=== PATIENT | female | born 1945 | race Two or more races ===

== ENCOUNTER 2024-02-21 13:52 | Emergency (ER) | payer OTHER ==
[~2024-02-21] VITALS: Ht 160 cm; Wt 82.6 kg
[2024-02-21] MEDS ORDERED: ONDANSETRON HCL 2 MG/ML VIAL ONE (15:26)
[2024-02-21] MEDS ORDERED: FAMOTIDINE/PF 20 MG/2 ML VIAL ONE (15:26)
[2024-02-21] MEDS ORDERED: 0.9 % SODIUM CHLORIDE 500 ML IV ONE (15:30)
[2024-02-21] MEDS ORDERED: ONDANSETRON HCL 2 MG/ML VIAL IV ONE (15:30)
[2024-02-21] MEDS ORDERED: FAMOTIDINE/PF 20 MG/2 ML VIAL IV ONE (15:30)
[2024-02-21 15:49] LABS: HEMATOCRIT 35.3 % (36.0-45.00); HEMOGLOBIN 11.6 g/dL (12.0-15.00); MEAN CELL VOLUME 85.1 fL (80.00-100.00); MEAN CORPUSCULAR HEMOGLOBIN 27.9 pg (27.00-32.0); MEAN CORPUSCULAR HGB CONC 32.7 g/dl (32.0-36.0); PLATELET COUNT 202 K/uL (150-450); RED BLOOD COUNT 4.14 M/uL (4.00-6.00); RED CELL DISTRIBUTION WIDTH 13.6 % (11.5-14.5)
[2024-02-21 16:13] LABS: ALBUMIN 3.6 gm/dL (3.4-5.0); BILIRUBIN TOTAL 0.55 mg/dL (0.3-1.2); CREATININE SERUM 0.72 mg/dL (0.55-1.02); GFR 77.94; GLOBULINA 3.7 G/DL (2.4-3.5); POTASSIUM 3.54 mEq/L (3.5-5.1); TOTAL PROTEIN 7.3 gm/dL (6.4-8.2)
[2024-02-21 16:30] LABS: URINE APPEARANCE Clear; URINE BILIRRUBIN Negative (NEGATIVE); URINE BLOOD Trace; URINE COLOR Yellow; URINE GLUCOSE Negative (NEGATIVE); URINE KETONE 15 (NEGATIVE); URINE LEUKOCYTE Trace; URINE NITRATE Negative; URINE PROTEIN Trace (NEGATIVE)
[2024-02-21 16:33] LABS: URINE BACTERIA 375.3 uL (0.0-1933); URINE EPITHELIAL CELLS 11.8 uL (0.0-38.8); URINE WBC 18.6 uL (0.0-23.2)
[2024-02-21 16:37] LABS: URINE CAST 0.61 uL (0.0-1.40)
== END 2024-02-21 17:50 ==
LOC: ER 13:52
PROVIDERS: Nurse Practitioner Family
DX: R10.12 Left upper quadrant pain (principal); R10.9 Unspecified abdominal pain; E11.9 Type 2 diabetes mellitus without complications; Z91.013 Allergy to seafood
CPT/HCPCS: 36415; 71045; 96365; 96366; 99283; J2405; J3490; J7042

== ENCOUNTER 2024-02-22 15:59 | Emergency (ER) | payer OTHER ==
[~2024-02-22] VITALS: Ht 160 cm; Wt 63.5 kg
[2024-02-22] MEDS ORDERED: SUCRALFATE 1 G TABLET PO ONE (16:45)
[2024-02-22] MEDS ORDERED: PANTOPRAZOLE SODIUM 40 MG/VIAL VIAL IV ONE (16:45)
[2024-02-22] MEDS ORDERED: ONDANSETRON HCL 2 MG/ML VIAL ONE (16:57)
[2024-02-22] MEDS ORDERED: ONDANSETRON HCL 2 MG/ML VIAL IV ONE (17:00)
[2024-02-22 17:11] LABS: HEMATOCRIT 39.6 % (36.0-45.00); HEMOGLOBIN 13.1 g/dL (12.0-15.00); MEAN CELL VOLUME 86.3 fL (80.00-100.00); MEAN CORPUSCULAR HEMOGLOBIN 28.6 pg (27.00-32.0); MEAN CORPUSCULAR HGB CONC 33.2 g/dl (32.0-36.0); PLATELET COUNT 234 K/uL (150-450); RED CELL DISTRIBUTION WIDTH 13.4 % (11.5-14.5)
[2024-02-22 17:41] LABS: PH,URINE 7.5 (5.0-8.0); URINE APPEARANCE Clear; URINE BILIRRUBIN Negative (NEGATIVE); URINE BLOOD Small; URINE COLOR Yellow; URINE KETONE Trace (NEGATIVE); URINE LEUKOCYTE Trace; URINE NITRATE Negative; URINE PROTEIN 30 (NEGATIVE)
[2024-02-22 17:45] LABS: URINE BACTERIA 280.9 uL (0.0-1933); URINE EPITHELIAL CELLS 15.3 uL (0.0-38.8); URINE RBC 54.6 uL (0.0-20.8); URINE WBC 13.1 uL (0.0-23.2)
[2024-02-22 17:59] LABS: URINE CAST 0.15 uL (0.0-1.40); URINE GLUCOSE 250 MG/DL (NEGATIVE)
[2024-02-22 18:11] LABS: ALBUMIN 4.4 gm/dL (3.4-5.0); BILIRUBIN TOTAL 0.56 mg/dL (0.3-1.2); CALCIUM 9.5 mg/dL (8.5-10.1); CREATININE SERUM 1.01 mg/dL (0.55-1.02); GFR 52.74; GLOBULINA 4.4 G/DL (2.4-3.5); POTASSIUM 3.34 mEq/L (3.5-5.1); TOTAL PROTEIN 8.8 gm/dL (6.4-8.2)
[2024-02-22] MEDS ORDERED: TAMSULOSIN HCL 0.4 MG CAP PO ONE ×2 (21:23→21:30)
[2024-02-23] MEDS ORDERED: LOSARTAN POTASS25 MG PO (00:50)
== END 2024-02-22 22:04 | disposition home or self-care (01) ==
LOC: ER 15:59
PROVIDERS: General Practice
DX: N13.2 Hydronephrosis with renal and ureteral calculous obstruction (principal); E11.9 Type 2 diabetes mellitus without complications; Z91.013 Allergy to seafood
CPT/HCPCS: 71045; 74176; 93005; 96365; 99284; J2405; J3490

== ENCOUNTER 2024-02-23 00:30 | Emergency (ER) | payer OTHER ==
[~2024-02-23] VITALS: Ht 160 cm; Wt 62.6 kg
[2024-02-23] MEDS ORDERED: LOSARTAN POTASS25 MG PO (00:50)
[2024-02-23] MEDS ORDERED: RINGERS SOLUTION,LACTATED 1,000 ML IV STA (01:17)
[2024-02-23] MEDS ORDERED: ONDANSETRON HCL 2 MG/ML VIAL IV STA (01:18)
[2024-02-23] MEDS ORDERED: KETOROLAC TROMETHAMINE 30 MG VIAL IV STA (01:18)
[2024-02-23] MEDS ORDERED: PROMETHAZINE HCL 50 MG/ML AMPUL IM STA (01:19)
[2024-02-23] MEDS ORDERED: MEPERIDINE HCL/PF 25 MG/ML VIAL IM STA (01:19)
[2024-02-23] MEDS ORDERED: ONDANSETRON HCL 2 MG/ML VIAL ONE (01:28)
[2024-02-23] MEDS ORDERED: HYOSCYAMINE SULFATE 0.125 MG TAB.SUBL ONE (01:28)
[2024-02-23] MEDS ORDERED: KETOROLAC TROMETHAMINE 30 MG VIAL ONE (01:28)
[2024-02-23] MEDS ORDERED: PROMETHAZINE HCL 50 MG/ML AMPUL IM ONE (01:29)
[2024-02-23] MEDS ORDERED: HYOSCYAMINE SULFATE 0.125 MG TAB.SUBL SL ONE (01:30)
== END 2024-02-23 07:23 | disposition home or self-care (01) ==
LOC: ER 00:30
DX: N20.1 Calculus of ureter (principal); R11.10 Vomiting, unspecified; Z91.013 Allergy to seafood
CPT/HCPCS: 96365; 96372; 99282; J1885; J2405; J3490 ×2